=== PATIENT | male | born 1960 | race Caucasian/White ===

== ENCOUNTER 2019-03-31 15:33 | Outpatient (CLI) | payer OTHER, SELFPAY ==
--- NOTE | ~2019-03-31 | XR_ITS ---
EXAMINATION: XR knee LT 3V DATE: 03/31/2019 15:55 INDICATION: Anterior left knee pain. TECHNIQUE: 3 views of left knee were obtained. COMPARISON: None. FINDINGS: Bone alignment is normal. No fracture. There is extensive sclerosis in distal femoral diaph ysis and metaphysis. There is mild osteoarthritis of patellofemoral compartment. No knee joint effusi on. IMPRESSION: 1. Sclerosis in distal femoral diaphysis and metaphysis, consistent with metastatic disease. 2. Mild left knee osteoarthritis. Reviewed, dictated and finalized at location A. ADER OPERATOR IMPRESSION: 1. Sclerosis in distal femoral diaphysis and metaphysis, consistent with metast atic disease. 2. Mild left knee osteoarthritis.
[2019-03-31 16:18] LABS: Basophils Percent Auto 0.4 % (0.2-1.2); Eosinophils Percent Auto 0.6 % (0-4.4); Hematocrit 22.9 % (42.0-52.0); Immature Granulocyte Absolute 0.01 K/mm3 (0.00-0.031); Immature Granulocyte Percent A 0.2 % (0-0.5); Lymphocytes Absolute Auto 0.92 K/mm3 (0.9-3.2); Lymphocytes Percent Auto 18.4 % (18.3-44.2); Mean Corpuscular HGB Conc 30.1 g/dl (32-36); Mean Corpuscular Hemoglobin 24.4 pg (26-34); Mean Corpuscular Volume 80.9 fl (80-100); Mean Platelet Volume 8.2 fl (7.4-10.4); Monocytes Absolute Auto 0.5 K/mm3 (0.1-0.6); Monocytes Percent Auto 10.2 % (2.6-8.5); Neutrophils Absolute Auto 3.5 K/mm3 (1.3-6.7); Neutrophils Percent Auto 70.2 % (45.5-73.1); Platelet Count Result 293 k/mm3 (150-375); Red Blood Count 2.83 M/mm3 (4.6-6.20); Red Cell Distribution Width 17.9 % (11.5-14.5)
[2019-03-31 16:32] LABS: Alanine Aminotransferase 22 U/L (4-50); Albumin Level 4.1 g/dL (3.5-5.1); Alkaline Phosphatase 348 U/L (38-126); Aspartate Amino Transferase 34 U/L (17-59); Bilirubin,Total 0.4 mg/dL (0.2-1.3); Blood Urea Nitrogen 46 mg/dL (9-20); Calcium 9.1 mg/dL (8.4-10.2); Carbon Dioxide 23 mmol/L (22-30); Chloride 96 mmol/L (98-107); Estimated Glomerular Filt Rate > 60; Glucose 122 mg/dL (75-110); Potassium 4.4 mmol/L (3.4-5.0); Sodium 133 mmol/L (137-145)
[2019-03-31 16:49] LABS: Hemoglobin 6.9 g/dL (14.0-18.0)
== END 2019-03-31 15:34 | disposition home or self-care (01) ==
PROVIDERS: PCP Internal Medicine; Visit Provider Nurse Practitioner
DX: R53.1 Weakness (principal); M17.12 Unilateral primary osteoarthritis, left knee
CPT/HCPCS: 36415; 73562; 80053; 85025

== ENCOUNTER 2019-04-10 00:52 | Inpatient (IN) | payer OTHER, SELFPAY ==
[2019-04-10 00:53] VITALS: BP 153/68; PULSE 92; RESP 20; TEMP 36.6; O2SAT 100
--- NOTE | 2019-04-10 01:03 | PC.NURSE ---
Patient reports in the last 12 hours he has taken two Morphine, 2 norco, and 10mg of Flexeril. Also reports he has difficulty urinating. States he self cathed prior to arrival and was able to drain his urine.
--- NOTE | 2019-04-10 01:16 | ED.GENADULT ---
HPI - General Adult General Chief complaint: Unspecified Stated complaint: pain Time Seen by Provider: 04/10/19 00:59 Source: patient Mode of arrival: ambulatory Limitations: no limitations History of Present Illness HPI narrative: A 59 y/o male presents to the ED with c/o generalized pain that started at 1800 yesterday. Pt states that he is currently diagnosed with stage 4 prostate cancer that metastasized to his bones. He notes that he has had similar episodes of generalized pain before, but they do not normally last this long. Pt is prescribed Morphine, Vicodin, and Ibuprofen BID to help with the pain. He notes that he took his evening medication at 1800 yesterday, and at 2100 he took a double dose of all of his pain medication with no relief. Pt could not sleep due to the pain, so he decided to come to the ED. He gets Lupron injections for his cancer. Pt denies fever and N/V. MD complaint: Generalized pain Onset (ago): hour(s) (7) Severity: similar to prior episodes Pain Consistency: constant Relieving factors: none Associated symptoms: denies other symptoms Treatments prior to arrival: NSAID and other (Morphine, Vicodin) Related Data Home Medications Medication Instructions Recorded Confirmed aspirin 81 mg tablet,delayed 81 mg PO DAILY 02/03/19 03/31/19 release calcium citrate 315 mg-vitamin D3 1 tablet PO DAILY 02/03/19 03/31/19 250 unit tablet cholecalciferol (vitamin D3) 25 1,000 unit PO DAILY 02/03/19 03/31/19 mcg (1,000 unit) tablet hydrocodone 5 mg-acetaminophen 325 2 tablet PO Q8H PRN tablet 02/03/19 03/31/19 mg tablet leuprolide (3 month) 11.25 mg (3 11.25 mg IM [id number] 02/03/19 03/31/19 month) intramuscular syringe kit mecobalamin (vitamin B12) 1,000 1,000 mcg SUBLINGUAL DAILY 02/03/19 03/31/19 mcg disintegrating tablet,sublingual morphine 30 mg tablet,extended 30 mg PO Q12H 02/03/19 03/31/19 release multivitamin 1 tablet PO DAILY 02/03/19 03/31/19 prednisone 5 mg tablet 5 mg PO DAILY 02/03/19 03/31/19 sennosides 8.6 mg tablet 17.2 mg PO DAILY PRN tablet 12/18/19 02/12/20 tamsulosin 0.4 mg capsule 0.4 mg PO BID cap 02/03/19 03/31/19 sitagliptin [Januvia] mg 04/10/19 Allergies Allergy/AdvReac Type Severity Reaction Status Date / Time No Known Allergies Allergy Verified 04/10/19 00:59 Review of Systems Review of Systems: All systems reviewed & are unremarkable except as noted in HPI and below Constitutional: Constitutional: Denies fever(s) and Reports other (Generalized pain) Gastrointestinal: Gastrointestinal: Denies nausea and Denies vomiting PMFSH Past Medical History Medical History (Updated 04/10/19 @ 03:15 by Aly Torres DO) Anemia Arthritis Bronchitis Chronic back pain Diabetes Glaucoma History of angina History of blood transfusion History of chemotherapy History of radiation therapy HTN (hypertension) Hyperlipidemia Left knee pain Osteoarthritis Prostate cancer Shingles Sleep apnea UTI (urinary tract infection) Surgical History Surgical History (Updated 04/10/19 @ 01:33 by Nancy Gómez) H/O transurethral resection of prostate History of cholecystectomy History of renal stent History of urethral stent Family History Family History Mother Hypertension, Onset Age: 59 Bladder cancer Sibling Patient's brother is in good health Patient's sister is , Onset Age: 63 Leukemia Father Family history of Alzheimer's disease, Onset Age: 93 Family history of cardiovascular disease, Onset Age: 93 Family history of dementia, Onset Age: 93 Social History Social History Smoking status: Never smoker Alcohol intake: current Gender identity (if verbalized by the patient): Male Exam Narrative: Exam Narrative: APPEARANCE: No acute distress, nontoxic, resting in bed EYES: EOMI HEENT: Normocephalic, atraumati
[2019-04-10] MEDS: HYDROMORPHONE HCL 1 MG/ML INJ IV PUSH ×5 (01:29→20:46)
[2019-04-10 01:47] LABS: Basophils Percent Auto 0.3 % (0.2-1.2); Eosinophils Absolute Auto 0.1 K/mm3 (0-0.3); Hemoglobin 9.1 g/dL (14.0-18.0); Immature Granulocyte Absolute 0.08 K/mm3 (0.00-0.031); Immature Granulocyte Percent A 1.3 % (0-0.5); Lymphocytes Absolute Auto 0.94 K/mm3 (0.9-3.2); Lymphocytes Percent Auto 15.4 % (18.3-44.2); Mean Corpuscular HGB Conc 31.4 g/dl (32-36); Mean Corpuscular Hemoglobin 24.5 pg (26-34); Mean Platelet Volume 7.9 fl (7.4-10.4); Monocytes Absolute Auto 0.5 K/mm3 (0.1-0.6); Monocytes Percent Auto 8.5 % (2.6-8.5); Neutrophils Absolute Auto 4.5 K/mm3 (1.3-6.7); Neutrophils Percent Auto 73.5 % (45.5-73.1); Platelet Count Result 398 k/mm3 (150-375); Red Blood Count 3.72 M/mm3 (4.6-6.20); Red Cell Distribution Width 18.5 % (11.5-14.5); White Blood Count 6.1 K/mm3 (4.5-10.0)
[2019-04-10 01:54] LABS: Alanine Aminotransferase 20 U/L (4-50); Alkaline Phosphatase 463 U/L (38-126); Aspartate Amino Transferase 54 U/L (17-59); Bilirubin,Total 0.3 mg/dL (0.2-1.3); Blood Urea Nitrogen 45 mg/dL (9-20); Calcium 9.1 mg/dL (8.4-10.2); Carbon Dioxide 23 mmol/L (22-30); Chloride 86 mmol/L (98-107); Estimated Glomerular Filt Rate > 60; Glucose 273 mg/dL (75-110); Potassium 5.3 mmol/L (3.4-5.0); Sodium 122 mmol/L (137-145)
--- NOTE | 2019-04-10 01:54 | PC.NURSE ---
Dr Torres aware of patient's pain level.
[2019-04-10] MEDS: HYDROMORPHONE HCL 1 MG/ML INJ 0.5 MG IV PUSH ×2 (02:04→03:12)
--- NOTE | 2019-04-10 02:07 | PC.NURSE ---
Patient refusing to lay back in bed due to pain, educated on fall risk and risks. verbalized she would stand next to him for support if needed.
[2019-04-10] MEDS: methylPREDNISolone SOD SUCC 125 MG VIAL IV PUSH (03:11)
[2019-04-10] MEDS: SODIUM CHLORIDE 0.9% IV 1,000 ML 999 ML IV CONT (03:11)
[2019-04-10 03:14] VITALS: BP 136/74; PULSE 89; RESP 15; O2SAT 99
[2019-04-10 03:29] VITALS: BP 156/81; PULSE 75; RESP 18; O2SAT 98
[2019-04-10 03:40] VITALS: BP 165/78; PULSE 93; RESP 18; TEMP 36.5; O2SAT 99; BMI 27.3
--- NOTE | 2019-04-10 03:49 | ADMGEN ---
This patient, Abe Wolfe, was admitted to [facility] Surg Room 327-01. Patient/family oriented to hospital policies and general routines including ID bracelet, bed and alarms, visiting hours, pain management, procedures, bathroom and other care routines, personal items, smoking policy, room service/diet, and visiting hours. Valuables list has been completed. Information on how to activate the Rapid Response Team has been discussed. Patient/Family are encouraged to report perceived risks to care and to ask questions if they do not understand what they are told or what they should do.
[2019-04-10] MEDS: SODIUM CHLORIDE 0.9% IV 1,000 ML 100 ML IV CONT ×2 (03:57→18:42)
[2019-04-10 09:50] LABS: Blood Urea Nitrogen 34 mg/dL (9-20); Calcium 8.8 mg/dL (8.4-10.2); Carbon Dioxide 19 mmol/L (22-30); Chloride 91 mmol/L (98-107); Estimated CRCL calculation 103 ml/min; Estimated Glomerular Filt Rate > 60; Glucose 354 mg/dL (75-110); Magnesium 2.1 mg/dL (1.6-2.3); Phosphorus 2.6 mg/dL (2.5-4.5); Potassium 5.4 mmol/L (3.4-5.0); Sodium 126 mmol/L (137-145)
[2019-04-10] MEDS: ACETAMINOPHEN 500 MG TABLET 1000 MG PO (11:45)
--- NOTE | 2019-04-10 12:57 | PM.IMPN ---
Progress Note: A&P Assessment and Plan (1) Prostate cancer metastatic to bone: Code(s): C61 - Malignant neoplasm of prostate; C79.51 - Secondary malignant neoplasm of bone Status: Acute Assessment and Plan: Discussed analgesic regimen with stella Finney Patient wishes to meet with hospice and to discharge under hospice care when his pain is controlled He wshes to meet with [facility] this afternoon Subjective Date/time seen: 04/10/19 12:57 Interval history: Patient seen at the request of Sharmin ESPINO. Patient has metastatic prostate cancer with PSA over 400. He has unrelenting severe pain worse with any activity in his entire skeleton. Because of the unrelenting pain he is not eating much the last few days. Morphine extended release 30 mg every 12 hours hydrocodone 10 mg every 6 hours as needed and p.r.n. ibuprofen are ineffective for him. His bowels are still moving. He still above to urinate. He has bilateral ureteral stents. His last injection of Lupron was approximately 2 months ago. His oncologist as told in the Lupron his palliative at this point and that he has nothing further to offer. Patient wishes to continue receiving palliative transfusions as needed. Exam Narrative: Exam Narrative: Neck without JVD Chest clear to auscultation Heart regular rate without murmur Abdomen protuberant but soft good bowel sounds nontender Extremities without cyanosis edema or clubbing Cranial nerves intact to inspection Musculoskeletal with out gross deformity and with symmetric tone and strength Objective Data Vital Signs Vital Signs: Vital Signs - 24 hr 04/10/19 00:53 04/10/19 03:14 04/10/19 03:29 Temperature 97.8 F Pulse Rate 92 89 75 Respiratory Rate 20 15 18 Blood Pressure 153/68 H 136/74 156/81 H Pulse Oximetry 100 99 98 04/10/19 03:40 Temperature 97.7 F Pulse Rate 93 Respiratory Rate 18 Blood Pressure 165/78 H Pulse Oximetry 99 Intake/Output Intake/Output: Intake & Output 04/07/19 04/08/19 04/09/19 04/10/19 23:59 23:59 23:59 23:59 Intake Total 1000 Balance 1000 Meds/Results Medications: Active Medications Generic Name Dose Route Start Last Admin Trade Name Freq PRN Reason Stop Dose Admin Acetaminophen 650 mg 04/10/19 12:22 Tylenol Tablet PO Q4H PRN Mild Pain (1-3) or Fever Hydrocodone Bitart/Acetaminophen 1 tab 04/10/19 12:22 [place] 10-325 Mg PO Q6H PRN Pain Rated 4-6 Aspirin 81 mg 04/10/19 09:00 Aspirin Ec PO DAILY [facility] Cyanocobalamin 1,000 mcg 04/10/19 09:00 Vitamin B-12 Tab PO QAM [facility] Dextrose 12.5 gm 04/10/19 12:25 Dextrose 50% Syringe IV PUSH PRN PRN Hypoglycemia Protocol Glucagon 1 mg 04/10/19 12:25 Glucagon For Inj IM PRN PRN Hypoglycemia Protocol Glucose 15 gm 04/10/19 12:25 Glutose 15 PO PRN PRN Hypoglycemia Protocol Hydromorphone HCl 1 mg 04/10/19 12:22 Dilaudid Inj IV PUSH Q3H PRN Pain Rated 7-10 Sodium Chloride 1,000 mls @ 100 mls/hr 04/10/19 03:10 04/10/19 03:57 Normal Saline Iv IV CONT 100 mls/hr .Q10H JULIANNA Administration Dextrose 1,000 mls @ 100 mls/hr 04/10/19 12:25 Dextrose 5% 1,000 Ml IVPB PRN PRN Hypoglycemia Protocol Insulin Aspart 2 - 5 units 04/10/19 17:00 Novolog SUB-Q TIDWM [facility] Protocol Metformin HCl 1,000 mg 04/10/19 17:00 Glucophage PO BIDWM [facility] Morphine Sulfate 30 mg 04/10/19 09:00 Ms Contin PO Q12HR [facility] Non-Formulary Medication 11.25 mg 07/09/19 09:00 Leuprolide (3 Month) IM 08/08/19 09:01 [id number] [facility] Ondansetron HCl 8 mg 04/10/19 12:17 Zofran Odt PO Q8H PRN Nausea Pantoprazole Sodium 40 mg 04/10/19 09:00 Protonix PO QAM [facility] Prednisone 5 mg 04/10/19 08:00 Prednisone PO DAILY@0800 [facility] Senna 17.2 mg 04/10/19 09:00 Senokot Tablet PO DAILY
--- NOTE | 2019-04-10 13:43 | PM.IMHP ---
H&P: HPI History of Present Illness Chief complaint: Stage IV prostate cancer with metastasis to bone, Narrative: Abe Wolfe is a 59 year old male with stage IV prostate cancer with mets to the bone who presented emergency room for uncontrolled bone pain. Patient states that he usually has his pain under control but every once in a while he cycles and has intense bone pain that he cannot control at home. He says he takes morphine 30mg BID and takes his norco 10mg every 8 hours with 400 ibuprofen routinely. He says his worst areas of pain are his back, joints, and legs. The last time this happened was about 3 weeks [address] He sees Dr. Jiménez, his oncologist, for pain. His doctor said that there is nothing more he can do for the cancer and that he would benefit from hospice care. The patient has seen hospice in the past who told him he could not have a blood transfusion and that is why he did not go to hospice at that time. He says that he is occasionally low on blood and once he gets more blood he feels a lot better and would like to continue doing that. Today the patient has felt some nausea but he says that is pretty normal for him. He has a lot of nausea and vomiting at home and has puke bags all over the house for this reason. He says he has been eating and drinking less because of the pain. He also mentions that he got a cold about a week and half ago that his whole family got which has been making his pain worse and his appetite worse. He denies fevers, chills or chest pain. He is a diabetic but does not check his glucose at home. He had a bowel movement today and yesterday but occasionally suffers from constipation. He has never been told that he has hyperkalemia and does not take potassium pills. He says he takes about 6 senna day to help avoid constipation. He still takes Lupron and about 3 years ago he had chemo and radiation but did not help his case. His main reason for being in the hospital is pain control. He says he knows he is terminal and would like hospice care to just to make the pain go away. Review of Systems Review of Systems: All systems reviewed & are unremarkable except as noted in HPI and below PMFSH Past Medical History Medical History Anemia Arthritis Bronchitis Chronic back pain Diabetes Glaucoma History of angina History of blood transfusion History of chemotherapy History of radiation therapy HTN (hypertension) Hyperlipidemia Left knee pain Osteoarthritis Prostate cancer Shingles Sleep apnea UTI (urinary tract infection) Surgical History Surgical History History of cholecystectomy History of renal stent History of urethral stent Family History Family History Mother Hypertension, Onset Age: 59 Bladder cancer Sibling Patient's brother is in good health Patient's sister is , Onset Age: 63 Leukemia Father Family history of Alzheimer's disease, Onset Age: 93 Family history of cardiovascular disease, Onset Age: 93 Family history of dementia, Onset Age: 93 Social History Social History (Updated 04/10/19 @ 17:05 by Sharmin Booker PA-C) Social History: Pt would like to be a DNR. Smoking status: Never smoker Alcohol intake: former Drinks per week: 0 Substance use: former Substance use type: marijuana Gender identity (if verbalized by the patient): Male Spiritual care concerns: No Agree to blood products: Yes Meds Home Medications and Allergies Home Medications Medication Instructions Recorded Confirmed Type dulaglutide 1.5 mg/0.5 mL 1.5 mg SUB-Q WEEKLY #6 pfu 01/22/19 04/10/19 Rx subcutaneous pen injector aspirin 81 mg tablet,delayed 81 mg PO DAILY 02/03/19 04/10/19 History release cholecalciferol (vitamin D3) 25 1,000 unit PO DAILY 02/03/19 0
[2019-04-10 14:00] VITALS: BP 142/68; PULSE 73; RESP 20; TEMP 36.7; O2SAT 96
[2019-04-10] MEDS: predniSONE 5 MG TABLET PO (14:01)
[2019-04-10] MEDS: ASPIRIN 81 MG ENTERIC TABLET PO (14:01)
[2019-04-10] MEDS: CYANOCOBALAMIN 1,000 MCG TABLET 1000 MCG PO (14:01)
[2019-04-10] MEDS: PANTOPRAZOLE 40 MG TABLET PO (14:06)
[2019-04-10] MEDS: SENNOSIDES 8.6 MG TABLET 17.2 MG PO (14:06)
[2019-04-10] MEDS: IBUPROFEN 400 MG TABLET PO ×3 (14:08→22:14)
[2019-04-10] MEDS: SODIUM POLYSTYRENE SULFONONATE 15 GM/60 ML BTL PO (14:10)
[2019-04-10] MEDS: MORPHINE SULFATE 30 MG TABCR PO ×2 (14:17→22:14)
[2019-04-10] MEDS: TAMSULOSIN HCL 0.4 MG CAPSULE PO (17:50)
[2019-04-10 18:13] LABS: Glucose Point of Care 352 (65-105)
[2019-04-10] MEDS: metFORMIN HCL 500 MG TABLET 1000 MG PO (18:43)
[2019-04-10] MEDS: INSULIN ASPART (*BKC) 100 UNITS/ML SUB-Q (18:44)
[2019-04-10 22:00] VITALS: BP 154/73; PULSE 95; RESP 18; TEMP 36.7; O2SAT 99
[2019-04-10 23:20] LABS: Glucose Point of Care 282 (65-105)
[2019-04-11] MEDS: HYDROMORPHONE HCL 1 MG/ML INJ IV PUSH ×3 (00:36→06:48)
[2019-04-11] MEDS: SODIUM CHLORIDE 0.9% IV 1,000 ML 100 ML IV CONT ×2 (03:38→13:16)
[2019-04-11] MEDS: MORPHINE SULFATE 30 MG TABCR PO ×2 (05:20→13:13)
[2019-04-11 06:00] VITALS: BP 144/67; PULSE 99; RESP 18; TEMP 36.7; O2SAT 95
[2019-04-11 06:18] LABS: Basophils Percent Auto 0.2 % (0.2-1.2); Eosinophils Absolute Auto 0.1 K/mm3 (0-0.3); Eosinophils Percent Auto 0.9 % (0-4.4); Hematocrit 27.3 % (42.0-52.0); Hemoglobin 8.7 g/dL (14.0-18.0); Immature Granulocyte Absolute 0.05 K/mm3 (0.00-0.031); Immature Granulocyte Percent A 0.9 % (0-0.5); Lymphocytes Absolute Auto 0.64 K/mm3 (0.9-3.2); Lymphocytes Percent Auto 12.1 % (18.3-44.2); Mean Corpuscular HGB Conc 31.9 g/dl (32-36); Mean Corpuscular Hemoglobin 24.8 pg (26-34); Mean Corpuscular Volume 77.8 fl (80-100); Monocytes Absolute Auto 0.6 K/mm3 (0.1-0.6); Monocytes Percent Auto 11.5 % (2.6-8.5); Neutrophils Absolute Auto 3.9 K/mm3 (1.3-6.7); Neutrophils Percent Auto 74.4 % (45.5-73.1); Platelet Count Result 347 k/mm3 (150-375); Red Blood Count 3.51 M/mm3 (4.6-6.20); Red Cell Distribution Width 18.6 % (11.5-14.5); White Blood Count 5.3 K/mm3 (4.5-10.0)
[2019-04-11 06:32] LABS: Blood Urea Nitrogen 29 mg/dL (9-20); Calcium 8.5 mg/dL (8.4-10.2); Carbon Dioxide 21 mmol/L (22-30); Chloride 95 mmol/L (98-107); Estimated CRCL calculation 71 ml/min; Estimated Glomerular Filt Rate > 60; Glucose 205 mg/dL (75-110); Potassium 4.6 mmol/L (3.4-5.0); Sodium 130 mmol/L (137-145)
[2019-04-11 08:43] LABS: Glucose Point of Care 178 (65-105)
[2019-04-11] MEDS: metFORMIN HCL 500 MG TABLET 1000 MG PO (08:59)
[2019-04-11] MEDS: predniSONE 5 MG TABLET PO (09:00)
[2019-04-11] MEDS: ASPIRIN 81 MG ENTERIC TABLET PO (09:00)
[2019-04-11] MEDS: CYANOCOBALAMIN 1,000 MCG TABLET 1000 MCG PO (09:00)
[2019-04-11] MEDS: IBUPROFEN 400 MG TABLET PO ×2 (09:01→13:13)
[2019-04-11] MEDS: PANTOPRAZOLE 40 MG TABLET PO (09:01)
[2019-04-11] MEDS: SENNOSIDES 8.6 MG TABLET 17.2 MG PO (09:01)
[2019-04-11] MEDS: TAMSULOSIN HCL 0.4 MG CAPSULE PO (09:02)
[2019-04-11 12:26] LABS: Glucose Point of Care 299 (65-105)
[2019-04-11] MEDS: INSULIN ASPART (*BKC) 100 UNITS/ML SUB-Q (13:07)
--- NOTE | 2019-04-11 14:28 | PM.DS ---
DS: Diagnosis Admitting Diagnosis Admitting Diagnosis: Malignant neoplasm of prostate Discharge Diagnosis (1) Prostate cancer metastatic to bone: Code(s): C61 - Malignant neoplasm of prostate; C79.51 - Secondary malignant neoplasm of bone Status: Acute Assessment and Plan: -----patient understands that this is terminal and would like to proceed with hospice care. We will continue treating his pain but increase his home morphine to every 8 hours. We will continue with his [place] and ibuprofen that he takes every 8 hours as well. p.r.n. suppositories as needed. (2) Acute hyponatremia: Code(s): E87.1 - Hypo-osmolality and hyponatremia Status: Acute Assessment and Plan: -----likely due to dehydration and pain. 122 on admission and 130 at discharge. (3) Anemia: Qualifiers: Anemia type: other cause Other causes of anemia: chronic disease, other Qualified Code(s): D63.8 - Anemia in other chronic diseases classified elsewhere Code(s): D64.9 - Anemia, unspecified Status: Acute Assessment and Plan: -----hemoglobin stable 8.7 today. (4) Hyperkalemia: Code(s): E87.5 - Hyperkalemia Status: Acute Assessment and Plan: -----improved 4.6. (5) Metabolic acidosis: Code(s): E87.2 - Acidosis Status: Acute Assessment and Plan: -----noted on labs. Gap is 14. pt request hospice and is mentating fine with a stable hgb. DS: Summary Hospital Course Reason for hospitalization: acute pain 2/2 prostate cancer Hospital Course: Patient is a 59-year-old male who presented emergency room pain felt related to his stage IV prostate cancer. Vitals were stable in the ER. White blood cell count normal, hemoglobin stable 9.1, hyponatremic 122 thought to be due to pain, hyperkalemic by 5.3. Normal creatinine. Patient was admitted to the hospitalist service with pain medication. On the day of admission he stated he would like to go hospice and just go home. He did not want any further workup. He did have a slight URI that is entire family has and had been taking Mucinex and feeling little bit better. He did have a cough but did not want any further workup. He did not look toxic. Patient spoke with [facility] and is going to follow up with them for all of his needs. Status at Discharge Functional status at discharge: independent ambulation Overall status at discharge: patient is back to baseline Time Spent with Patient Time attestation: Total time spent providing and/or coordinating discharge services:34 min Time spent: Greater than 30 minutes Exam Narrative: Exam Narrative: General: Chronically ill patient resting comfortably in the bed in no acute distress. Patient walked to the chair during the exam and had a normal gait HEENT: Normocephalic, atraumatic, PERRL, Sclerae anicteric, oral mucosa moist. Neck: Supple Resp: Decreased breath sounds but clear Heart: RRR Abd: Soft, nontender. No pain to palpation. Positive bowel sounds Skin: Warm and dry Extremities: No swelling, erythema or pain to palpation Neuro: Alert and Oriented x4 . CN 2-12 intact. No focal neurological deficits. DS: Data Data Completed and Pending Labs on day of discharge: Labs from last 24 hours 04/11/19 04/11/19 04/11/19 12:16 08:31 05:41 WBC RBC Hgb Hct MCV MCH MCHC RDW Plt Count MPV Immature Gran % (Auto) Neut % (Auto) Lymph % (Auto) Miller % (Auto) Eos % (Auto) Baso % (Auto) Lymph # (Auto) Miller # (Auto) Eos # (Auto) Baso # (Auto) Abs Immat Gran (auto) Absolute Neuts (auto) Absolute Nucleated RBC Nucleated RBC % Sodium 130 L Potassium 4.6 Chloride 95 L Carbon Dioxide 21 L BUN 29 H Creatinine 0.90 Estim Creat Clear Calc 71 Estimated GFR > 60 Glucose 205 H POC Capillary Glucose 299 H 178 H Calcium 8.5
--- NOTE | 2019-04-11 15:41 | PC.NURSE ---
Patient discharged @1530. IV lines removed, patient stated on discharge that pain was controlled. Hospice nurse Lisbet aware of patient discharge @1530. Lisbet RN stated she would meet the family at the patients home. Discharge instructions and belongings list verified with patient and family.
== END 2019-04-11 15:30 | disposition hospice, home (50) | DRG 723 ==
LOC: ANHED 01:28 → ANH3MEDSUR 03:13
PROVIDERS: Physician Assistant; Admitting Provider Internal Medicine; Emergency Provider Emergency Medicine; PCP Internal Medicine; Visit Provider Internal Medicine
DX: C61 Malignant neoplasm of prostate (principal); C79.51 Secondary malignant neoplasm of bone; E87.1 Hypo-osmolality and hyponatremia; E87.2 Acidosis; E11.9 Type 2 diabetes mellitus without complications; Z92.21 Personal history of antineoplastic chemotherapy; Z92.3 Personal history of irradiation; M19.90 Unspecified osteoarthritis, unspecified site; M54.9 Dorsalgia, unspecified; G89.29 Other chronic pain; H40.9 Unspecified glaucoma; I10 Essential (primary) hypertension; G47.30 Sleep apnea, unspecified; Z87.440 Personal history of urinary (tract) infections; D63.0 Anemia in neoplastic disease
CPT/HCPCS: 36415; 80048; 80053; 83735; 84100; 85025; 96374; 96375; 96376; 99285; A9270; J1170; J1815; J2930; J7030; J7512

== ENCOUNTER 2019-05-18 07:30 | Outpatient (RCR) | payer OTHER, SELFPAY ==
[2019-04-02] VITALS (8 sets, daily range): BP systolic 110–142; BP diastolic 57–67; PULSE 87–95; RESP 12–16; TEMP 35.7–36.7; O2SAT 87–100
[2019-04-02 07:36] LABS: Hematocrit 23.6 % (42.0-52.0); Hemoglobin 7.2 g/dL (14.0-18.0)
[2019-05-18] VITALS (8 sets, daily range): BP systolic 119–134; BP diastolic 62–71; PULSE 87–92; RESP 18; TEMP 36.6–37.1; O2SAT 97–100
[2019-05-18 08:10] LABS: Hematocrit 23.9 % (42.0-52.0)
[2019-05-18 08:13] LABS: Hemoglobin 6.9 g/dL (14.0-18.0)
== END 2019-07-01 23:59 | disposition home or self-care (01) ==
LOC: ANHCPCTRAN 07:30
PROVIDERS: PCP Internal Medicine; Referring Provider Nurse Practitioner; Visit Provider Nurse Practitioner
DX: D64.9 Anemia, unspecified (principal)
CPT/HCPCS: 36415; 36430; 85014; 85018; 86850; 86900; 86901; 86920; 86923; A9270; J7050; P9016

== ENCOUNTER 2019-05-18 13:31 | Outpatient (CLI) | payer OTHER, SELFPAY ==
[2019-05-18 09:25] LABS: Hematocrit 24.2 % (42.0-52.0); Mean Corpuscular HGB Conc 28.5 g/dl (32-36); Mean Corpuscular Hemoglobin 23.7 pg (26-34); Mean Corpuscular Volume 83.2 fl (80-100); Mean Platelet Volume 8.4 fl (7.4-10.4); Platelet Count Result 343 k/mm3 (150-375); Red Blood Count 2.91 M/mm3 (4.6-6.20); Red Cell Distribution Width 22.4 % (11.5-14.5); White Blood Count 5.3 K/mm3 (4.5-10.0)
[2019-05-18 09:27] LABS: Hemoglobin 6.9 g/dL (14.0-18.0)
== END 2019-05-18 13:32 ==
LOC: ANHLAB 06-15 13:31
PROVIDERS: PCP Internal Medicine; Visit Provider Nurse Practitioner
DX: D64.9 Anemia, unspecified (principal)
CPT/HCPCS: 36415; 85027

== ENCOUNTER 2019-06-20 07:54 | Emergency (ER) | payer OTHER, SELFPAY ==
--- NOTE | ~2019-06-20 | XR_ITS ---
XR shoulder RT min 2V 06/20/2019 08:23 Indication: Right shoulder pain after lifting injury. Prostate cancer. Procedure: 4 views right shoulder Comparison: No prior studies for comparison. Findings: No acute fracture or traumatic malalignment. There is patchy sclerosis involving all visual ized osseous structures, consistent with metastatic disease. No focal soft tissue abnormality. No rad iopaque foreign bodies. Impression: 1: Patchy sclerosis of the visualized osseous structures, consistent with metastatic disease. Reviewed, dictated and finalized at location A. Impression: 1: Patchy sclerosis of the visualized osseous structures, consistent with metas tatic disease.
[2019-06-20 08:02] VITALS: BP 142/58; PULSE 96; RESP 18; TEMP 36.4; O2SAT 97
--- NOTE | 2019-06-20 08:12 | ED.UPPEXIN ---
HPI - Extremity Injury (Upper) General Chief Complaint: Extremity Injury, Upper Stated Complaint: right shoulder pain Time Seen by Provider: 06/20/19 08:11 Source: patient Mode of arrival: ambulatory Limitations: no limitations History of Present Illness HPI narrative: This patient is a 59 yo male with metastatic prostate CA who presents for evaluation of right shoulder pain. Patient states yesterday he was lifting a heavy trash can when he felt a pop in his right shoulder. He had some pain last night but when he woke up this morning he is having worsening pain with decreased range of motion. He takes oral morphine, norco and motrin at home chronically for his cancer pain already. He last took those medications at 7 am this morning. He denies focal weakness, numbness or tingling. His pain is mostly located anteriorly. He thinks 2 weeks ago he injured the same shoulder. He states he is seen at [facility] for his cancer. He stopped chemotherapy and radiation a couple years ago. He was on hospice 2 months ago but he got off in order to receive a blood transfusion. He is still not back on hospice. MD complaint: injury to: right and shoulder Onset (ago): week(s) (2) Severity scale (1-10): 10 Relieving factors: rest Exacerbating factors: movement of extremity Associated symptoms: heard/felt popping sensation Treatments prior to arrival: NSAIDS Related Data Home Medications Medication Instructions Recorded Confirmed aspirin 81 mg tablet,delayed 81 mg PO DAILY 02/03/19 05/20/19 release cholecalciferol (vitamin D3) 25 1,000 unit PO DAILY 02/03/19 05/20/19 mcg (1,000 unit) tablet hydrocodone 5 mg-acetaminophen 325 2 tablet PO Q8H PRN tablet 02/03/19 05/20/19 mg tablet leuprolide (3 month) 11.25 mg (3 11.25 mg IM [id number] 02/03/19 05/20/19 month) intramuscular syringe kit mecobalamin (vitamin B12) 1,000 1,000 mcg SUBLINGUAL DAILY 02/03/19 05/20/19 mcg disintegrating tablet,sublingual multivitamin 1 tablet PO DAILY 02/03/19 05/20/19 sennosides 8.6 mg tablet 17.2 mg PO DAILY tablet 02/03/19 05/20/19 tamsulosin 0.4 mg capsule 0.4 mg PO BID cap 12/18/19 04/02/20 Prilosec OTC 20 mg PO DAILY 04/10/19 05/20/19 calcium carbonate-vitamin D3 1 tablet PO DAILY 04/10/19 05/20/19 [Calcium 600 + D(3)] ibuprofen 400 mg PO Q8H PRN 04/10/19 05/20/19 ondansetron HCl 8 mg PO Q8H PRN 04/10/19 05/20/19 glipizide 10 mg tablet 10 mg PO BID 05/20/19 05/20/19 morphine 30 mg tablet,extended 30 mg PO Q12H tablet 05/20/19 05/20/19 release prednisone 5 mg tablet 5 mg PO BID tablet 05/20/19 05/20/19 Allergies Allergy/AdvReac Type Severity Reaction Status Date / Time No Known Allergies Allergy Verified 06/20/19 08:06 Review of Systems Constitutional: Constitutional: Denies chills, Denies fever(s) and Reports weakness (chronic due to cancer) Musculoskeletal: Musculoskeletal: Reports myalgias (due to cancer) and Reports arthralgias Neurologic: Denies focal weakness and Denies numbness PMFSH Past Medical History Medical History Anemia Arthritis Bronchitis Chronic back pain Diabetes Glaucoma History of angina History of blood transfusion History of chemotherapy History of radiation therapy HTN (hypertension) Hyperlipidemia Left knee pain Osteoarthritis Prostate cancer Shingles Sleep apnea UTI (urinary tract infection) Surgical History Surgical History History of cholecystectomy History of renal stent History of urethral stent Social History Social History (Updated 04/10/19 @ 17:05 by Sharmin Booker PA-C) Social History: Pt would like to be a DNR. Smoking status: Never smoker Alcohol intake: former Drinks per week: 0 Substance use: former Substance use type: marijuana Gender identity (if verbalized by the patient): Male Spiritual care concerns: No Agree to blood pro
[2019-06-20] MEDS: ONDANSETRON INJ 4 MG/2 ML VIAL IV PUSH (08:22)
[2019-06-20] MEDS: HYDROMORPHONE HCL 1 MG/ML INJ IV PUSH (08:25)
[2019-06-20 08:33] VITALS: PULSE 90; O2SAT 94
[2019-06-20] MEDS: HYDROMORPHONE HCL 1 MG/ML INJ 0.5 MG IV PUSH (08:47)
[2019-06-20 08:48] VITALS: TEMP 36.4
[2019-06-20 09:50] VITALS: TEMP 36.4
[2019-06-20 09:51] VITALS: BP 133/61; PULSE 92; RESP 20; O2SAT 97
== END 2019-06-20 09:52 | disposition home or self-care (01) ==
PROVIDERS: Emergency Provider General Practice; PCP Internal Medicine
DX: M25.511 Pain in right shoulder (principal); C79.51 Secondary malignant neoplasm of bone; C61 Malignant neoplasm of prostate; M19.90 Unspecified osteoarthritis, unspecified site; E11.9 Type 2 diabetes mellitus without complications; H40.9 Unspecified glaucoma; Z92.21 Personal history of antineoplastic chemotherapy; Z92.3 Personal history of irradiation; I10 Essential (primary) hypertension; E78.5 Hyperlipidemia, unspecified; Z86.2 Personal history of diseases of the blood and blood-forming organs and certain disorders involving the immune mechanism; G47.30 Sleep apnea, unspecified; Z87.440 Personal history of urinary (tract) infections; Z79.82 Long term (current) use of aspirin; Z79.84 Long term (current) use of oral hypoglycemic drugs
CPT/HCPCS: 73030; 96374; 96375; 99284; A4565; J1170; J2405

== ENCOUNTER 2019-07-05 07:43 | Outpatient (RCR) | payer OTHER, SELFPAY ==
[2019-07-05] VITALS (10 sets, daily range): BP systolic 120–137; BP diastolic 52–60; PULSE 97–102; RESP 14–16; TEMP 36.4–37; O2SAT 97–100
[2019-07-05 08:06] LABS: Hematocrit 22.6 % (42.0-52.0); Mean Corpuscular HGB Conc 30.1 g/dl (32-36); Mean Corpuscular Hemoglobin 24.5 pg (26-34); Mean Corpuscular Volume 81.6 fl (80-100); Mean Platelet Volume 7.9 fl (7.4-10.4); Platelet Count Result 318 k/mm3 (150-375); Red Blood Count 2.77 M/mm3 (4.6-6.20); Red Cell Distribution Width 20.6 % (11.5-14.5); White Blood Count 6.5 K/mm3 (4.5-10.0)
[2019-07-05 08:07] LABS: Hemoglobin 6.8 g/dL (14.0-18.0)
== END 2019-08-05 23:59 | disposition home or self-care (01) ==
LOC: ANHCPCTRAN 07:43
PROVIDERS: PCP Internal Medicine; Visit Provider Nurse Practitioner
DX: D64.9 Anemia, unspecified (principal)
CPT/HCPCS: 36415; 36430; 85027; 86850; 86900; 86901; 86923; P9016